=== PATIENT | male | born 1950 | race Hispanic/Latino ===

== ENCOUNTER 2017-01-01 04:53 | Emergency (ER) | payer MEDICARE ==
[2017-01-01] MEDS ORDERED: MOTRIN PO ONE (09:46)
--- NOTE | 2017-01-01 10:51 | XRay Report ---
RIGHT TOE RADIOGRAPHS INDICATION: Pain right foot/fourth digit. COMPARISON: None similar. FINDINGS: An AP view of the right foot with AP, lateral and oblique projections of the forefoot demonstrate intact bony articulation. 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 Soft tissue swelling suspected diffusely along dorsum of the foot and also laterally along the fifth metacarpal and toe. CONCLUSION: No acute right foot fracture identified, though soft tissue swelling suspected and few other findings, as above. Please correlate. Thank you for the opportunity to participate in this patient's care.
--- NOTE | 2017-01-01 11:09 | Emergency Department Report ---
ED Lower Extremity HPI - General Chief Complaint: Extremity Injury, Lower Stated Complaint: FOOT PAIN Time Seen by Provider: 01/01/17 09:22 Source: patient Mode of arrival: Ambulatory Limitations: No Limitations - History of Present Illness Initial Comments: 66-year-old male past medical history high cholesterol p/w with complaint of 3 days of right-sided toe pain and some mild swelling. Patient denies any fever or chills. Denies any direct trauma denies any pus drainage. Patient is fully ambulatory without assistance. MD Complaint: other Onset/Timin -: days(s) Injury: Toes: Right Place: home Severity: moderate Severity scale (0 -10): 6 Worsens With: palpation - Related Data Previous Rx's Medication Instructions Recorded Last Taken Type Ibuprofen [Motrin 600 MG tab] 600 mg PO Q8H PRN #30 tablet 12/05/15 Unknown Rx Acetaminophen/Codeine [Tylenol #3] 1 tab PO Q6H PRN #8 tab 01/01/17 Unknown Rx Cephalexin [Keflex] 500 mg PO Q12HR #14 cap 01/01/17 Unknown Rx Naproxen [Naproxen TAB] 250 mg PO Q8H PRN #20 tablet 01/01/17 Unknown Rx Sulfamethoxazole/Trimethoprim 1 each PO BID #14 tablet 01/01/17 Unknown Rx [Bactrim DS TAB] Allergies Allergy/AdvReac Type Severity Reaction Status Date / Time No Known Allergies Allergy Verified 12/05/15 08:04 ED Review of Systems ROS: Stated complaint: FOOT PAIN Other details as noted in HPI Constitutional: denies: chills, fever Eyes: denies: eye pain, eye discharge, vision change ENT: denies: ear pain, throat pain Respiratory: denies: cough, shortness of breath, wheezing Cardiovascular: denies: chest pain, palpitations Endocrine: no symptoms reported Gastrointestinal: denies: abdominal pain, nausea, diarrhea Genitourinary: denies: urgency, dysuria Musculoskeletal: denies: back pain, joint swelling, arthralgia Skin: denies: rash, lesions Neurological: denies: headache, weakness, paresthesias Psychiatric: denies: anxiety, depression Hematological/Lymphatic: denies: easy bleeding, easy bruising ED Past Medical Hx - Past Medical History Previous Medical History?: Yes Additional medical history: High cholesterol - Surgical History Additional Surgical History: Implants in eyes. - Social History Smoking Status: Unknown if ever smoked - Medications Home Medications: Home Medications Medication Instructions Recorded Confirmed Last Taken Type Ibuprofen [Motrin 600 MG tab] 600 mg PO Q8H PRN #30 tablet 12/05/15 Unknown Rx Acetaminophen/Codeine [Tylenol #3] 1 tab PO Q6H PRN #8 tab 01/01/17 Unknown Rx Cephalexin [Keflex] 500 mg PO Q12HR #14 cap 01/01/17 Unknown Rx Naproxen [Naproxen TAB] 250 mg PO Q8H PRN #20 tablet 01/01/17 Unknown Rx Sulfamethoxazole/Trimethoprim 1 each PO BID #14 tablet 01/01/17 Unknown Rx [Bactrim DS TAB] ED Physical Exam - General Limitations: No Limitations General appearance: alert, in no apparent distress - Head Head exam: Present: atraumatic, normocephalic - Eye Eye exam: Present: normal appearance, PERRL, EOMI - ENT ENT exam: Present: mucous membranes moist - Neck Neck exam: Present: normal inspection, full ROM - Respiratory Respiratory exam: Present: normal lung sounds bilaterally. Absent: respiratory distress - Cardiovascular Cardiovascular Exam: Present: regular rate, normal rhythm. Absent: systolic murmur, diastolic murmur, rubs, gallop - GI/Abdominal GI/Abdominal exam: Present: soft, normal bowel sounds - Rectal Rectal exam: Present: deferred - Extremities Exam Extremities exam: Present: normal inspection, full ROM, tenderness (mild tenderness right fourth toe), normal capillary refill, other (total sensation in toes and capillary refill intact) - Expanded Lower Extremity Exam Right Hip exam: Present: normal inspection, full ROM Upper Leg exam: Present: normal inspection, full ROM Knee exam: Present: normal inspection, full ROM Lower Leg exam: Present: normal inspection, full ROM Ankle exam: Present: normal inspection, full ROM Foot/Toe exam: Present: tenderness, swelling (mild right 4th toe swellign and pain) Neuro vascular tendon exam: Present: no vascular compromise Gait: Positive: observed and normal 1 - Very mild redness and swelling here no visible or palpable abscess - Back Exam Back exam: Present: normal inspection, full ROM - Neurological Exam Neurological exam: Present: alert, oriented X3, CN II-XII intact, normal gait - Psychiatric Psychiatric exam: Present: normal affect, normal mood - Skin Skin exam: Present: warm, dry, intact, normal color. Absent: rash ED Course Vital Signs 01/01/17 05:37 Temperature 98.0 F Pulse Rate 76 Respiratory 18 Rate Blood Pressure 122/86 O2 Sat by Pulse 97 Oximetry ED Lower Extremity MDM - Medical Decision Making A/P: Toe cellulitis, possible mild case of gout 1-Bactrim and Keflex twice a day 7 days, naproxen when necessary for pain 2- no visible abscess very small area of cellulitis, there is marked 3- I advised patient to return to the ED if redness pain and swelling worsens despite medication use 4-pt is ambulatory without any assistance Critical care attestation.: If time is entered above; I have spent that time in minutes in the direct care of this critically ill patient, excluding procedure time. ED Disposition Clinical Impression: Cellulitis of toe of right foot Disposition: DISCHARGED TO HOME OR SELFCARE Is pt being admited?: No Does the pt Need Aspirin: No Condition: Stable Instructions: Cellulitis (ED), Acute Gouty Arthritis (ED) Additional Instructions: I advised patient to return to the ED if symptoms worsen Prescriptions: Acetaminophen/Codeine [Tylenol #3] 1 tab PO Q6H PRN #8 tab PRN Reason: Pain Cephalexin [Keflex] 500 mg PO Q12HR #14 cap Naproxen [Naproxen TAB] 250 mg PO Q8H PRN #20 tablet PRN Reason: Pain Sulfamethoxazole/Trimethoprim [Bactrim DS TAB] 1 each PO BID #14 tablet Referrals: ROBERTA GARCIA MD [Staff Physician] - 3-5 Days Time of Disposition: 11:12
[2017-01-01 11:46] VITALS: BP 135/70
== END 2017-01-01 11:49 | disposition home or self-care (01) ==
LOC: ED 04:53
DX: L03.031 Cellulitis of right toe (principal); E78.00 Pure hypercholesterolemia, unspecified
CPT/HCPCS: 99283